=== PATIENT | male | born 1985 | race Caucasian/White ===

== ENCOUNTER 2017-04-29 23:27 | Inpatient (IN) | payer OTHER ==
[~2017-04-29] VITALS: Ht 177.8 cm; Wt 95.0 kg
[2017-04-29 23:34] VITALS: BP 132/84; PULSE 105; RESP 18; TEMP 98.1; O2SAT 96
[2017-04-29] MEDS ORDERED: DIPHTH/TETANUS/ACEL PERTUSSIS (BOOSTER) 0.5 ML VIAL/PFS IM ONE ×2 (23:37→23:45)
[2017-04-29] MEDS ORDERED: ceFAZolin 2 GM PREMIX 50 ML ONE (23:37)
[2017-04-29 23:40] VITALS: O2SAT 98
[2017-04-29 23:43] VITALS: BP 137/86; PULSE 103; RESP 18; O2SAT 96
[2017-04-29] MEDS ORDERED: SODIUM CHLOR 0.9% 1000 ML INJ 1,000 ML IV SCH (23:44)
[2017-04-29] MEDS ORDERED: ONDANSETRON HCL 4 MG/2 ML VIAL IV PUSH ONE (23:45)
[2017-04-29] MEDS ORDERED: SODIUM CHLORIDE 0.9% FLUSH 10 ML FLUSH IVF PRN (23:45)
[2017-04-29] MEDS ORDERED: ceFAZolin 2 GM PREMIX 50 ML IV ONE (23:45)
[2017-04-29] MEDS ORDERED: MORPHINE SULFATE 4 MG/ML INJ IV PUSH ONE (23:45)
[2017-04-29 23:48] VITALS: O2SAT 98
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
[2017-04-29 23:54] LABS: AUTOMATED NEUTROPHIL # 6.1 TH/MM3 (1.8-7.7); BASOPHIL # 0.1 TH/MM3 (0-0.2); EOSINOPHIL # 0.1 TH/MM3 (0-0.4); EOSINOPHIL % 0.8 % (0.0-4.0); HEMO FLAGS DIFF FINAL; LYMPH % 27.9 % (9.0-44.0); LYMPHOCYTE # 2.7 TH/MM3 (1.0-4.8); MEAN CELL VOLUME 87.5 FL (80.0-100.0); MEAN CORPUSCULAR HEMOGLOBIN 30.4 PG (27.0-34.0); MEAN CORPUSCULAR HGB CONC 34.7 % (32.0-36.0); MONO % 8.5 % (0.0-8.0); NEUT % 61.8 % (16.0-70.0); PLATELET COUNT 300 TH/MM3 (150-450); RED BLOOD COUNT 5.14 MIL/MM3 (4.50-5.90); WHITE BLOOD COUNT 9.8 TH/MM3 (4.0-11.0)
[2017-04-29 23:55] LABS: I-STAT POTASSIUM 3.7 MMOL/L (3.5-4.9)
[2017-04-30] VITALS (14 sets, daily range): BP systolic 105–148; BP diastolic 55–79; PULSE 73–122; RESP 16–20; TEMP 96.8–98.5; O2SAT 97–100
[2017-04-30 00:05] LABS: APTT (PATIENT) 22.5 SEC (24.3-30.1); PROTHROMBIN TIME - PATIENT 11.1 SEC (9.8-11.6)
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
[2017-04-30] MEDS ORDERED: IOHEXOL 350 MG/ML 10 ML VIAL (for RAD DIAG) IVCONTRAST ONE (00:32)
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
[2017-04-30] MEDS ORDERED: LIDOCAINE 1%/EPINEPHrine 1:100,000 SOLN 50 ML VIAL INFIL ONE (00:45)
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
[2017-04-30 01:40] LABS: BLOOD, URINE NEG (NEG); GLUCOSE,URINE NEG (NEG); KETONE, URINE NEG (NEG); NITRITE,URINE NEG (NEG); PH, URINE 5.5 (5.0-8.5); URINE COLOR LIGHT-YELLOW (YELLW/STRAW)
[2017-04-30 01:47] LABS: COMMENT (UR) CULT NOT INDICATED; CULTURE IF INDICATED CULT NOT INDICATED
[2017-04-30] MEDS ORDERED: SODIUM CHLORIDE 0.9% FLUSH 10 ML FLUSH IV FLUSH PRN (04:15)
[2017-04-30] MEDS ORDERED: NALOXONE HCL 0.4 MG/ML AMP IV PUSH PRN (04:15)
[2017-04-30] MEDS ORDERED: Post-op Orders (for Pharmacy) MISC XX ONE (04:15)
[2017-04-30] MEDS ORDERED: ONDANSETRON HCL 4 MG/2 ML VIAL IV PUSH PRN (04:15)
[2017-04-30] MEDS: SODIUM CHLOR 0.9% 1000 ML INJ 1,000 ML IV SCH ×3 (05:38→22:57)
[2017-04-30] MEDS ORDERED: ACETAMINOPHEN 325 MG TAB PO ONE (05:45)
[2017-04-30] MEDS: oxyCODONE/ACETAMINOPHEN 5 MG/325 MG TAB PO PRN ×2 (08:15→18:40)
[2017-04-30] MEDS: DOCUSATE SODIUM 100 MG CAP PO SCH ×2 (09:00→20:53)
[2017-04-30] MEDS: SODIUM CHLORIDE 0.9% FLUSH 10 ML FLUSH IV FLUSH SCH ×2 (09:00→20:54)
[2017-04-30] MEDS: FAMOTIDINE 20 MG TAB PO SCH ×2 (09:00→20:53)
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
[2017-04-30] MEDS: MAGNESIUM HYDROXIDE SUSP 30 ML CUP PO SCH (20:53)
[2017-05-01] VITALS: BP 142/71; PULSE 89; RESP 17; TEMP 96.7; O2SAT 98
[2017-05-01] MEDS: SODIUM CHLOR 0.9% 1000 ML INJ 1,000 ML IV SCH (00:55)
[2017-05-01] MEDS: oxyCODONE/ACETAMINOPHEN 5 MG/325 MG TAB PO PRN ×4 (00:56→22:14)
[2017-05-01 04:00] VITALS: BP 134/79; PULSE 80; RESP 17; TEMP 96.1; O2SAT 95
[2017-05-01 05:59] LABS: AUTOMATED NEUTROPHIL # 4.5 TH/MM3 (1.8-7.7); BASOPHIL # 0.1 TH/MM3 (0-0.2); EOSINOPHIL # 0.2 TH/MM3 (0-0.4); EOSINOPHIL % 2.3 % (0.0-4.0); HEMATOCRIT 41.3 % (39.0-51.0); HEMO FLAGS DIFF FINAL; LYMPH % 27.5 % (9.0-44.0); LYMPHOCYTE # 2.3 TH/MM3 (1.0-4.8); MEAN CELL VOLUME 88.4 FL (80.0-100.0); MEAN CORPUSCULAR HEMOGLOBIN 30.3 PG (27.0-34.0); MEAN CORPUSCULAR HGB CONC 34.3 % (32.0-36.0); MONO % 15.2 % (0.0-8.0); PLATELET COUNT 216 TH/MM3 (150-450); RED BLOOD COUNT 4.67 MIL/MM3 (4.50-5.90); RED CELL DISTRIBUTION WIDTH 13.1 % (11.6-17.2); WHITE BLOOD COUNT 8.3 TH/MM3 (4.0-11.0)
[2017-05-01 06:13] LABS: BICARBONATE 23.7 MEQ/L (21.0-32.0)
[2017-05-01 08:00] VITALS: BP 120/71; PULSE 62; RESP 16; TEMP 97; O2SAT 98
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
[2017-05-01] MEDS ORDERED: DOCU1CAP39 PO (08:09)
[2017-05-01] MEDS ORDERED: MAGN400S PO (08:09)
[2017-05-01] MEDS: LACTULOSE SYRUP 20 GM/30 ML CUP PO SCH (08:52)
[2017-05-01] MEDS: FAMOTIDINE 20 MG TAB PO SCH ×2 (08:52→22:13)
[2017-05-01] MEDS: DOCUSATE SODIUM 100 MG CAP PO SCH ×2 (08:52→22:13)
[2017-05-01] MEDS: SODIUM CHLORIDE 0.9% FLUSH 10 ML FLUSH IV FLUSH SCH ×2 (08:57→22:14)
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
[2017-05-01 16:30] VITALS: BP 121/69; PULSE 58; RESP 16; TEMP 97.3; O2SAT 97
--- NOTE | 2017-05-01 18:30 | RADRPT ---
EXAM DATE/TIME: 05/01/2017 18:03 [facility] COMPARISON: CT BRAIN W/O CONTRAST, April 30, 2017, 0:19. INDICATIONS : Head pain due to trauma. RADIATION DOSE: 48.59 CTDIvol (mGy) MEDICAL HISTORY : None SURGICAL HISTORY : None. ENCOUNTER: Initial ACUITY: 2 days PAIN SCALE: 8/10 LOCATION: Left cranial TECHNIQUE: Multiple contiguous axial images were obtained of the head. Using automated exposure control and adj ustment of the mA and/or kV according to patient size, radiation dose was kept as low as reasonably a chievable to obtain optimal diagnostic quality images. DICOM format image data is available electro nically for review and comparison. FINDINGS: Today's exam is compared to prior study. There continues to be a trace of focal hemorrhage in the rig ht orbital frontal region. No significant change compared to the prior exam. The ventricles remain no rmal in size and midline in position. No new areas of hemorrhage are seen. No mass effect or midline shift. The posterior fossa is unremarkable and stable. CONCLUSION: Stable CT scan of the brain compared to the prior exam. Dennys Schaefer MD on May 01, 2017 at 18:27 Board Certified Radiologist. This report was verified electronically.
[2017-05-01] MEDS: MAGNESIUM HYDROXIDE SUSP 30 ML CUP PO SCH (22:13)
[2017-05-01] MEDS: BACITRACIN TOP OINT 15 GM TUBE TOPICAL SCH (22:57)
[2017-05-02 00:48] VITALS: BP 124/73; PULSE 69; RESP 18; TEMP 98.2; O2SAT 95
[2017-05-02 06:14] VITALS: BP 117/78; PULSE 73; RESP 18; TEMP 97.1; O2SAT 97
[2017-05-02 08:00] VITALS: BP 114/70; PULSE 86; RESP 16; TEMP 97.8; O2SAT 97
[2017-05-02] MEDS: LACTULOSE SYRUP 20 GM/30 ML CUP PO SCH (09:00)
[2017-05-02] MEDS: SODIUM CHLORIDE 0.9% FLUSH 10 ML FLUSH IV FLUSH SCH (09:00)
[2017-05-02] MEDS: oxyCODONE/ACETAMINOPHEN 5 MG/325 MG TAB PO PRN (09:38)
[2017-05-02] MEDS: DOCUSATE SODIUM 100 MG CAP PO SCH (09:40)
[2017-05-02] MEDS: FAMOTIDINE 20 MG TAB PO SCH (09:40)
[2017-05-02] MEDS: BACITRACIN TOP OINT 15 GM TUBE TOPICAL SCH (09:41)
[2017-05-02] MEDS ORDERED: OXYC1TAB63 PO (11:34)
[2017-05-02 12:00] VITALS: BP 113/68; PULSE 94; RESP 16; TEMP 97.4; O2SAT 96
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
== END 2017-05-02 12:42 | disposition home or self-care (01) | DRG 85 ==
LOC: NEPE 23:27 → NEDA 04-30 01:09 → NEDH 04-30 06:21 → N06A 04-30 13:34
PROVIDERS: ADMIT Surgery; ATTEND Surgery
PROC: 0HQ1XZZ Repair Face Skin, External Approach (ICD-10-PCS; principal; 2017-04-29)
DX: S06.311A Contusion and laceration of right cerebrum with loss of consciousness of 30 minutes or less, initial encounter (principal); J96.90 Respiratory failure, unspecified, unspecified whether with hypoxia or hypercapnia; S02.82XA Fracture of other specified skull and facial bones, left side, initial encounter for closed fracture; S01.112A Laceration without foreign body of left eyelid and periocular area, initial encounter; S02.19XA Other fracture of base of skull, initial encounter for closed fracture; V29.9XXA Motorcycle rider (driver) (passenger) injured in unspecified traffic accident, initial encounter; Y93.89 Activity, other specified; Y92.410 Unspecified street and highway as the place of occurrence of the external cause; Y90.8 Blood alcohol level of 240 mg/100 ml or more; Z72.0 Tobacco use
CPT/HCPCS: 12013; 70450; 70486; 71010; 71260; 72125; 72170; 74177; 80048; 80307; 81001; 82435; 82565; 82947; 84132; 84295; 84520; 85025; 85384; 85610; 85730; 86850; 86900; 86901; 90471; 90715; 94150; 96365; 96375; G8987-GP; G8988-GP; J0690; J7030; Q9967